=== PATIENT | male | born 1980 | race Caucasian/White ===

== ENCOUNTER → 2017-12-07 13:09 | Outpatient (CLI) | payer BC | END | disposition home or self-care (01) | LOC: D.CT 13:09 | DX: S42.252A Displaced fracture of greater tuberosity of left humerus, initial encounter for closed fracture (principal); X58.XXXA Exposure to other specified factors, initial encounter; Y93.89 Activity, other specified; Y92.89 Other specified places as the place of occurrence of the external cause ==